=== PATIENT | male | born 1970 | race Two or more races ===

== ENCOUNTER → 2017-04-30 | Outpatient (CLI) | payer OTHER ==
[~2017-04-30] VITALS: Ht 152.4 cm; Wt 119.3 kg
[~2017-04-30] MED LIST: ALLEGRA30 MG PO; AMARYL 4 MG; ATENOLOL50 MG PO; CATAFLAM50 MG PO; CYCLOBENZAPRINE10 MG PO; DOSTINEX PO; DURICEF 500 MG CAPSULE PO; FLONASE16 G1 NS; FLONASE16 GM NS; GILTUSS TR TAB1 EACH PO; GLIMEPIRIDE4 MG PO; GLIPIZIDE 2.5 MG; GLUCOPHAGE XR500 MG PO; HYZAAR 100-121 UDTAB PO; HYZAAR 100/25 T1 TAB PO; JANUMET 50-501 UDTAB PO; LOPRESSOR 50 MG PO; METFORMIN HCL500 M1 PO; NABUMETONE500 MG PO; NORVASC5 MG PO; ORALONE5 GM DT; TORADOL60 MG IM; TRAM1TAB98 PO; VOLTAREM 50 MG PO; ZITHROMAX200 MG PO; ZITHROMAX500 MG PO; ZYRTEC10 MG PO; [UNRECOGNIZED DRUG - OTHER] PO
== END | disposition home or self-care (01) ==
LOC: PPHC 07:48
DX: R07.0 Pain in throat (principal)

== ENCOUNTER 2017-05-02 09:05 | Outpatient (CLI) | payer OTHER | END 2017-05-02 09:08 | disposition home or self-care (01) | LOC: LAB 09:05 | DX: J11.1 Influenza due to unidentified influenza virus with other respiratory manifestations (principal) ==

== ENCOUNTER 2017-05-02 12:18 | Outpatient (CLI) | payer OTHER | END 2017-05-02 12:25 | disposition home or self-care (01) | LOC: LAB 12:18 | DX: R50.9 Fever, unspecified (principal) ==

== ENCOUNTER → 2017-05-02 | Outpatient (CLI) | payer OTHER ==
[~2017-05-02] VITALS: Ht 152.4 cm; Wt 119.3 kg
== END | disposition home or self-care (01) ==
LOC: PPHC 07:31
DX: R50.9 Fever, unspecified (principal)

== ENCOUNTER 2017-06-12 07:06 | Day surgery (SDC) | payer OTHER ==
[2017-06-12] MEDS ORDERED: PERCOCET 5-3251 EACH PO (12:58)
== END 2017-06-12 16:25 | disposition home or self-care (01) ==
LOC: CIR.AMB 07:06
DX: C73 Malignant neoplasm of thyroid gland (principal)

== ENCOUNTER 2017-07-15 10:09 | Outpatient (CLI) | payer OTHER | END 2017-07-15 10:18 | disposition home or self-care (01) | LOC: LAB 10:09 | DX: R59.1 Generalized enlarged lymph nodes (principal); R50.9 Fever, unspecified ==

== ENCOUNTER → 2017-07-15 | Outpatient (CLI) | payer OTHER ==
[~2017-07-15] MED LIST changes: +PERCOCET 5-3251 EACH PO
== END | disposition home or self-care (01) ==
LOC: PPHC 09:42
DX: R59.0 Localized enlarged lymph nodes (principal)

== ENCOUNTER → 2017-08-15 07:03 | Outpatient (CLI) | payer OTHER | END | disposition home or self-care (01) | LOC: RAD 07:03 | DX: Z11.1 Encounter for screening for respiratory tuberculosis (principal) ==

== ENCOUNTER → 2017-11-08 | Outpatient (CLI) | payer OTHER | END | disposition home or self-care (01) | LOC: RAD 11:46 | DX: M54.89 Other dorsalgia (principal) ==

== ENCOUNTER 2017-12-24 17:02 | Outpatient (CLI) | payer OTHER | END 2017-12-24 17:08 | disposition home or self-care (01) | LOC: LAB 17:02 | DX: R50.9 Fever, unspecified (principal); J02.8 Acute pharyngitis due to other specified organisms; J11.1 Influenza due to unidentified influenza virus with other respiratory manifestations ==

== ENCOUNTER 2017-12-29 08:46 | Emergency (ER) | payer OTHER ==
[~2017-12-29] VITALS: Ht 170.2 cm; Wt 117.9 kg
== END 2017-12-29 09:55 | disposition home or self-care (01) ==
LOC: ER 08:46
DX: J03.80 Acute tonsillitis due to other specified organisms (principal)

== ENCOUNTER 2018-01-06 10:53 | Emergency (ER) | payer OTHER ==
[~2018-01-06] VITALS: Ht 165.1 cm; Wt 111.1 kg
== END 2018-01-06 14:04 | disposition home or self-care (01) ==
LOC: ER 10:53
DX: S50.02XA Contusion of left elbow, initial encounter (principal); S80.02XA Contusion of left knee, initial encounter; S10.83XA Contusion of other specified part of neck, initial encounter; W07.XXXA Fall from chair, initial encounter; Y93.89 Activity, other specified; Y92.69 Other specified industrial and construction area as the place of occurrence of the external cause; Y99.8 Other external cause status

== ENCOUNTER 2018-02-17 15:46 | Outpatient (CLI) | payer OTHER ==
[~2018-02-17] VITALS: Ht 152.4 cm; Wt 120.2 kg
== END 2018-02-17 16:00 | disposition home or self-care (01) ==
LOC: OFIC 805 15:46
DX: H61.23 Impacted cerumen, bilateral (principal); H90.3 Sensorineural hearing loss, bilateral

== ENCOUNTER 2018-03-19 18:43 | Outpatient (CLI) | payer OTHER | END 2018-03-19 19:11 | disposition home or self-care (01) | LOC: RAD 18:43 | DX: R05 Cough (principal) ==

== ENCOUNTER 2018-03-20 07:11 | Outpatient (CLI) | payer OTHER | END 2018-03-20 07:17 | disposition home or self-care (01) | LOC: LAB 07:11 | DX: J11.1 Influenza due to unidentified influenza virus with other respiratory manifestations (principal); R50.9 Fever, unspecified ==

== ENCOUNTER 2018-03-27 12:48 | Outpatient (CLI) | payer OTHER | END 2018-03-27 12:55 | disposition home or self-care (01) | LOC: RAD 12:48 | DX: R05 Cough (principal) ==

== ENCOUNTER 2018-04-30 07:27 | Outpatient (CLI) | payer OTHER ==
[~2018-04-30] VITALS: Ht 152.4 cm; Wt 117.9 kg
== END 2018-04-30 07:40 | disposition home or self-care (01) ==
LOC: OFIC 805 07:27
DX: E03.8 Other specified hypothyroidism (principal); L91.0 Hypertrophic scar; R06.83 Snoring; G47.33 Obstructive sleep apnea (adult) (pediatric); C73 Malignant neoplasm of thyroid gland; E66.8 Other obesity; J31.0 Chronic rhinitis

== ENCOUNTER 2018-05-07 07:32 | Outpatient (CLI) | payer OTHER | END 2018-05-07 07:43 | disposition home or self-care (01) | LOC: LAB 07:32 | DX: C73 Malignant neoplasm of thyroid gland (principal); E03.8 Other specified hypothyroidism ==

== ENCOUNTER 2018-05-08 14:23 | Outpatient (CLI) | payer OTHER | END 2018-05-08 15:36 | disposition home or self-care (01) | LOC: LAB 14:23 | DX: C73 Malignant neoplasm of thyroid gland (principal); E89.0 Postprocedural hypothyroidism ==

== ENCOUNTER 2018-05-13 13:48 | Outpatient (CLI) | payer OTHER | END 2018-05-13 14:36 | disposition home or self-care (01) | LOC: SONOGRAMA 13:48 | DX: C73 Malignant neoplasm of thyroid gland (principal) ==

== ENCOUNTER 2018-05-28 08:08 | Outpatient (CLI) | payer OTHER ==
[~2018-05-28] VITALS: Ht 152.4 cm; Wt 115.7 kg
== END 2018-05-28 08:20 | disposition home or self-care (01) ==
LOC: OFIC 805 08:08
DX: C73 Malignant neoplasm of thyroid gland (principal); R06.83 Snoring; L91.0 Hypertrophic scar; E03.9 Hypothyroidism, unspecified; H61.22 Impacted cerumen, left ear; G47.33 Obstructive sleep apnea (adult) (pediatric)

== ENCOUNTER → 2019-03-09 08:33 | Outpatient (CLI) | payer OTHER | END | disposition home or self-care (01) | LOC: LAB 08:33 | DX: R05 Cough (principal); J11.1 Influenza due to unidentified influenza virus with other respiratory manifestations ==

== ENCOUNTER 2019-04-27 13:26 | Outpatient (CLI) | payer OTHER | END 2019-04-27 13:34 | disposition home or self-care (01) | LOC: LAB 13:26 | DX: J11.1 Influenza due to unidentified influenza virus with other respiratory manifestations (principal); R05 Cough; R53.1 Weakness; I10 Essential (primary) hypertension ==

== ENCOUNTER 2019-11-07 07:39 | Outpatient (CLI) | payer OTHER | END 2019-11-07 15:00 | disposition home or self-care (01) | LOC: LAB 07:39 | PROVIDERS: ATTEND Internal Medicine Sports Medicine | DX: C73 Malignant neoplasm of thyroid gland (principal); E89.0 Postprocedural hypothyroidism; D64.89 Other specified anemias; E11.9 Type 2 diabetes mellitus without complications; E78.2 Mixed hyperlipidemia; I10 Essential (primary) hypertension ==

== ENCOUNTER 2019-11-12 13:59 | Outpatient (CLI) | payer OTHER | END 2019-11-12 14:08 | disposition home or self-care (01) | LOC: SONOGRAMA 13:59 → MAMO-SONO 14:15 | PROVIDERS: ATTEND Internal Medicine Sports Medicine | DX: E04.2 Nontoxic multinodular goiter (principal) ==